=== PATIENT | male | born 1960 | race Two or more races ===

== ENCOUNTER 2021-09-27 12:14 | Inpatient (IN) | payer MEDICAID, OTHER ==
[~2021-09-27] VITALS: Ht 157.5 cm; Wt 54.1 kg
[2021-09-27] MEDS ORDERED: ACETAMINOPHEN 500 MG TAB PO ONE (12:30)
[2021-09-27] MEDS ORDERED: ZINC SULFATE 220mg CAP or TAB PO ONE (13:00)
[2021-09-27] MEDS ORDERED: ASCORBIC ACID 500 MG TAB PO ONE (13:00)
[2021-09-27] MEDS ORDERED: AZITHROMYCIN 500MG/ 250ML 250 ML IV ONE (13:00)
[2021-09-27] MEDS ORDERED: methylPREDNISolone SOD SUCC 125 MG/2 ML VL IV ONE (13:00)
[2021-09-27] MEDS ORDERED: CHOLECALCIFEROL (VITD3) 2,000 UNIT CAP/TAB PO ONE (13:00)
[2021-09-27 13:20] LABS: Basophils # (auto) 0 10 ^3/uL (0-0.2); Basophils % (auto) 0.4 % (0.0-2.0); Eosinophils # (auto) 0 10 ^3/uL (0-0.8); Hematocrit 45.6 % (41.0-53.0); Hemoglobin 15.7 g/dL (13.5-17.5); Lymphocytes # (auto) 1.3 10 ^3/uL (0.4-5.4); Mean Corpuscular Hemoglobin 30.3 pg (28.0-32.0); Mean Corpuscular Hgb Conc. 34.5 g/dL (32.0-36.0); Mean Corpuscular Volume 87.9 fL (80.0-100.0); Monocytes # (auto) 0.4 10 ^3/uL (0-1.3); Neutrophils % (auto) 77.6 % (37.0-80.0); Nucleated Red Blood Cells % 0.2 %; Red Blood Cells 5.19 10^6/uL (4.5-5.90); Red Cell Distribution Width 13.6 % (11.8-14.3); White Blood Cell 7.7 10^3/uL (4.4-10.8)
[2021-09-27 13:30] LABS: Albumin 2.8 g/dL (3.4-5.0); BUN/Creatinine Ratio 8.9; Calcium 7.5 mg/dL (8.5-10.1); Magnesium 2.9 mg/dL (1.6-2.6); Potassium 3.8 mmol/L (3.5-5.1)
[2021-09-27 13:43] LABS: Bilirubin, Total 1.1 mg/dL (0.2-1.0); Total Protein 8.1 g/dL (6.4-8.2)
[2021-09-27] MEDS ORDERED: NITROGLYCERIN 0.4 MG SL TAB SL PRN ×2 (16:00→17:00)
[2021-09-27] MEDS ORDERED: MORPHINE SULFATE INJECTION 2 MG/ML SYRG IV PRN ×3 (16:00→17:00)
[2021-09-27] MEDS ORDERED: ASPI325T4 PO (16:11)
[2021-09-27 17:00] VITALS: BP 113/79
[2021-09-27] MEDS ORDERED: HYDROcodone-ACET 5/325MG TAB PO PRN (17:00)
[2021-09-27] MEDS ORDERED: ONDANSETRON HCL 4 MG/2 ML VIAL IV PRN (17:00)
[2021-09-27] MEDS ORDERED: REMDESIVIR PER PHARMACY 0 ML IV SCH (17:00)
[2021-09-27] MEDS ORDERED: DOCUSATE SOD 100 MG CAP PO PRN (17:00)
[2021-09-27] MEDS ORDERED: ALUM & MAG HYDROX-SIMETH LIQ(MAALOX) 30 ML PO PRN (17:00)
[2021-09-27] MEDS ORDERED: FUROSEMIDE 20 MG/2 ML VIAL IV ONE (17:00)
[2021-09-27] MEDS ORDERED: ALBUMIN 25% 50 ML IV ONE (17:15)
[2021-09-27] MEDS: IVERMECTIN 3 MG TAB PO SCH (17:24)
[2021-09-27] MEDS ORDERED: REMDESIVIR 200 MG in NS 210ml LOADING DOSE ADULT IV ONE (18:30)
[2021-09-27 21:55] VITALS: BP 116/64
[2021-09-27 21:57] LABS: Calcium 7.4 mg/dL (8.5-10.1); Cholesterol 109 mg/dL (< 200); Magnesium 2.7 mg/dL (1.6-2.6); Potassium 3.7 mmol/L (3.5-5.1)
[2021-09-27 22:00] LABS: HDL Cholesterol 30 mg/dL (40-59); LDL Cholesterol 66 mg/dL (< 100); Triglycerides 93 mg/dL (< 150)
[2021-09-27 22:05] LABS: BUN/Creatinine Ratio 10.7; Bilirubin, Total 1.2 mg/dL (0.2-1.0); CRP High Sensitivity 13.3 mg/dL (< 0.3)
[2021-09-27] MEDS: ENOXAPARIN SOD 40 MG/0.4 ML SYRINGE SC SCH (22:07)
[2021-09-27] MEDS: POTASSIUM CHL 20 Meq TABLET PO SCH (22:07)
[2021-09-27] MEDS: ATORVASTATIN 20 MG TAB PO SCH (22:07)
[2021-09-27] MEDS: DOXYCYCLINE 100MG/250ML 250 ML IV SCH (22:07)
[2021-09-27 22:14] LABS: Thyroid Stimulating Hormone 0.9 uIU/mL (0.358-3.74)
[2021-09-28 00:59] VITALS: BP 116/64
[2021-09-28 02:46] LABS: Urine Bacteria NONE SEEN /hpf (None Seen); Urine Blood Negative /uL (Negative); Urine Hyaline Cast FEW /lpf (0 - 2); Urine Mucus FEW (None Seen); Urine Specific Gravity 1.028 (1.001-1.035); Urine WBC 1 /hpf (0 - 3)
[2021-09-28 02:58] LABS: Amphetamine Screen, Urine NEGATIVE (NEGATIVE); Barbiturate Scree,Urine NEGATIVE (NEGATIVE); Benzodiazephine Screen, Urine NEGATIVE (NEGATIVE); Cannabinoid Screen, Urine NEGATIVE (NEGATIVE); Cocaine Screen, Urine NEGATIVE (NEGATIVE); Opiate Scree,Urine POSITIVE (NEGATIVE); Phencyclidine Screen, Urine NEGATIVE (NEGATIVE)
[2021-09-28 04:55] VITALS: BP 120/69
[2021-09-28] MEDS: BUDESONIDE (INHALATION) 180 MCG IH IN SCH ×2 (06:00→20:31)
[2021-09-28] MEDS: FUROSEMIDE 20 MG/2 ML VIAL IV SCH ×2 (06:00→18:41)
[2021-09-28] MEDS: ALBUTEROL SULF HFA 90MCG INH 200DOSE IN PRN ×2 (06:00→20:31)
[2021-09-28 07:06] LABS: Basophils # (auto) 0 10 ^3/uL (0-0.2); Basophils % (auto) 0.3 % (0.0-2.0); Eosinophils # (auto) 0 10 ^3/uL (0-0.8); Eosinophils % (auto) 0.1 % (0.0-7.0); Hematocrit 45.6 % (41.0-53.0); Hemoglobin 15.5 g/dL (13.5-17.5); Lymphocytes # (auto) 0.9 10 ^3/uL (0.4-5.4); Lymphocytes % (auto) 14.3 % (10.0-50.0); Mean Corpuscular Volume 88.2 fL (80.0-100.0); Monocytes # (auto) 0.3 10 ^3/uL (0-1.3); Monocytes % (auto) 4.4 % (0.0-12.0); Neutrophils # (auto) 5.4 10 ^3/uL (1.6-8.6); Neutrophils % (auto) 80.9 % (37.0-80.0); Nucleated Red Blood Cells % 0.2 %; Red Blood Cells 5.16 10^6/uL (4.5-5.90); Red Cell Distribution Width 13.5 % (11.8-14.3); White Blood Cell 6.6 10^3/uL (4.4-10.8)
[2021-09-28 07:22] LABS: Albumin 2.9 g/dL (3.4-5.0); Calcium 7.8 mg/dL (8.5-10.1); Magnesium 3.1 mg/dL (1.6-2.6); Potassium 3.5 mmol/L (3.5-5.1); Uric Acid 5.4 mg/dL (3.5-7.2)
[2021-09-28 07:23] LABS: INR 0.99 (0.9-1.15); Partial Thromboplastin Time 36.2 sec (23.6-33.0)
[2021-09-28 07:28] LABS: BUN/Creatinine Ratio 14.6; Bilirubin, Total 0.9 mg/dL (0.2-1.0); Phosphorus 3.2 mg/dL (2.5-4.90); Total Protein 8.1 g/dL (6.4-8.2)
[2021-09-28] MEDS: DexAMETHasone SOD PHOS 10MG/1ML VIAL INJ IV SCH (08:46)
[2021-09-28] MEDS: DOXYCYCLINE 100MG/250ML 250 ML IV SCH ×2 (08:47→22:00)
[2021-09-28] MEDS: ASCORBIC ACID 1,000 MG TAB PO SCH (08:49)
[2021-09-28] MEDS: CHOLECALCIFEROL (VITD3) 2,000 UNIT CAP/TAB PO SCH (08:49)
[2021-09-28] MEDS: ZINC SULFATE 220mg CAP or TAB PO SCH (08:49)
[2021-09-28] MEDS: ASPirin 81 mg TAB PO SCH (08:49)
[2021-09-28] MEDS: ENOXAPARIN SOD 40 MG/0.4 ML SYRINGE SC SCH ×2 (08:49→22:00)
[2021-09-28] MEDS: POTASSIUM CHL 20 Meq TABLET PO SCH ×2 (08:49→22:00)
[2021-09-28] MEDS: IVERMECTIN 3 MG TAB PO SCH (08:49)
[2021-09-28 08:55] VITALS: BP 118/65
[2021-09-28 13:00] VITALS: BP 116/64
[2021-09-28] MEDS: REMDESIVIR 100mg 100 MG in SODIUM CHL 0.9% 230 ML IV SCH (15:00)
[2021-09-28 16:55] VITALS: BP 110/66
[2021-09-28 22:00] VITALS: BP 116/67
[2021-09-28] MEDS: ATORVASTATIN 20 MG TAB PO SCH (22:00)
[2021-09-29 05:00] VITALS: BP 101/43
[2021-09-29] MEDS: ALBUTEROL SULF HFA 90MCG INH 200DOSE IN PRN ×2 (05:56→18:39)
[2021-09-29] MEDS: BUDESONIDE (INHALATION) 180 MCG IH IN SCH ×2 (05:56→18:40)
[2021-09-29] MEDS: FUROSEMIDE 20 MG/2 ML VIAL IV SCH ×2 (06:00→18:37)
[2021-09-29 07:16] LABS: Basophils # (auto) 0 10 ^3/uL (0-0.2); Eosinophils # (auto) 0 10 ^3/uL (0-0.8); Hemoglobin 15.1 g/dL (13.5-17.5); Lymphocytes # (auto) 1.2 10 ^3/uL (0.4-5.4); Mean Corpuscular Hemoglobin 29.9 pg (28.0-32.0); Mean Corpuscular Hgb Conc. 33.6 g/dL (32.0-36.0); Mean Corpuscular Volume 88.9 fL (80.0-100.0); Monocytes # (auto) 0.6 10 ^3/uL (0-1.3); Monocytes % (auto) 4.4 % (0.0-12.0); Neutrophils # (auto) 12.7 10 ^3/uL (1.6-8.6); Neutrophils % (auto) 87.6 % (37.0-80.0); Nucleated Red Blood Cells % 0.3 %; Red Blood Cells 5.06 10^6/uL (4.5-5.90); Red Cell Distribution Width 13.6 % (11.8-14.3); White Blood Cell 14.5 10^3/uL (4.4-10.8)
[2021-09-29 07:30] LABS: Potassium 4.6 mmol/L (3.5-5.1)
[2021-09-29 07:31] LABS: BUN/Creatinine Ratio 23.5
[2021-09-29 08:55] VITALS: BP 109/66
[2021-09-29] MEDS: DexAMETHasone SOD PHOS 10MG/1ML VIAL INJ IV SCH (09:48)
[2021-09-29] MEDS: POTASSIUM CHL 20 Meq TABLET PO SCH ×2 (09:49→21:56)
[2021-09-29] MEDS: DOXYCYCLINE 100MG/250ML 250 ML IV SCH ×2 (09:49→21:58)
[2021-09-29] MEDS: IVERMECTIN 3 MG TAB PO SCH (09:49)
[2021-09-29] MEDS: ASPirin 81 mg TAB PO SCH (09:49)
[2021-09-29] MEDS: ZINC SULFATE 220mg CAP or TAB PO SCH (09:49)
[2021-09-29] MEDS: ASCORBIC ACID 1,000 MG TAB PO SCH (09:50)
[2021-09-29] MEDS: CHOLECALCIFEROL (VITD3) 2,000 UNIT CAP/TAB PO SCH (09:50)
[2021-09-29] MEDS: ENOXAPARIN SOD 40 MG/0.4 ML SYRINGE SC SCH ×2 (09:50→21:56)
[2021-09-29] MEDS ORDERED: IOHEXOL 350 MG/ML 100ML IJ ONE (11:42)
[2021-09-29 12:37] VITALS: BP 120/70
[2021-09-29] MEDS: REMDESIVIR 100mg 100 MG in SODIUM CHL 0.9% 230 ML IV SCH (16:00)
[2021-09-29 16:52] VITALS: BP 116/73
[2021-09-29] MEDS: ATORVASTATIN 20 MG TAB PO SCH (21:56)
[2021-09-29 22:12] VITALS: BP 113/59
[2021-09-30 05:34] VITALS: BP 106/94
[2021-09-30] MEDS: FUROSEMIDE 20 MG/2 ML VIAL IV SCH ×2 (06:24→19:21)
[2021-09-30 06:57] LABS: Basophils # (auto) 0 10 ^3/uL (0-0.2); Eosinophils # (auto) 0 10 ^3/uL (0-0.8); Hematocrit 44.7 % (41.0-53.0); Hemoglobin 15.1 g/dL (13.5-17.5); Lymphocytes # (auto) 1.1 10 ^3/uL (0.4-5.4); Lymphocytes % (auto) 7.4 % (10.0-50.0); Mean Corpuscular Hemoglobin 30.4 pg (28.0-32.0); Mean Corpuscular Hgb Conc. 33.8 g/dL (32.0-36.0); Mean Corpuscular Volume 89.9 fL (80.0-100.0); Monocytes # (auto) 0.6 10 ^3/uL (0-1.3); Monocytes % (auto) 4.3 % (0.0-12.0); Neutrophils # (auto) 13.1 10 ^3/uL (1.6-8.6); Neutrophils % (auto) 88.3 % (37.0-80.0); Nucleated Red Blood Cells % 0.1 %; Red Blood Cells 4.97 10^6/uL (4.5-5.90); Red Cell Distribution Width 13.5 % (11.8-14.3); White Blood Cell 14.8 10^3/uL (4.4-10.8)
[2021-09-30 07:10] LABS: Potassium 4.7 mmol/L (3.5-5.1)
[2021-09-30 07:14] LABS: Albumin 2.6 g/dL (3.4-5.0); BUN/Creatinine Ratio 22.6
[2021-09-30 07:17] LABS: Bilirubin, Total 1.1 mg/dL (0.2-1.0)
[2021-09-30] MEDS: ALBUTEROL SULF HFA 90MCG INH 200DOSE IN PRN (07:47)
[2021-09-30] MEDS: BUDESONIDE (INHALATION) 180 MCG IH IN SCH ×2 (07:47→20:59)
[2021-09-30 08:39] VITALS: BP 119/62
[2021-09-30] MEDS: DexAMETHasone SOD PHOS 10MG/1ML VIAL INJ IV SCH (10:03)
[2021-09-30] MEDS: ZINC SULFATE 220mg CAP or TAB PO SCH (10:09)
[2021-09-30] MEDS: DOXYCYCLINE 100MG/250ML 250 ML IV SCH ×2 (10:09→22:28)
[2021-09-30] MEDS: ASPirin 81 mg TAB PO SCH (10:09)
[2021-09-30] MEDS: ASCORBIC ACID 1,000 MG TAB PO SCH (10:10)
[2021-09-30] MEDS: POTASSIUM CHL 20 Meq TABLET PO SCH ×2 (10:10→22:30)
[2021-09-30] MEDS: IVERMECTIN 3 MG TAB PO SCH (10:10)
[2021-09-30] MEDS: CHOLECALCIFEROL (VITD3) 2,000 UNIT CAP/TAB PO SCH (10:10)
[2021-09-30] MEDS: ENOXAPARIN SOD 40 MG/0.4 ML SYRINGE SC SCH ×2 (10:11→22:30)
[2021-09-30 13:01] VITALS: BP 114/66
[2021-09-30] MEDS: REMDESIVIR 100mg 100 MG in SODIUM CHL 0.9% 230 ML IV SCH (16:58)
[2021-09-30 16:59] VITALS: BP 118/61
[2021-09-30 22:00] VITALS: BP 117/76
[2021-09-30] MEDS: ATORVASTATIN 20 MG TAB PO SCH (22:30)
[2021-10-01 03:34] VITALS: BP 117/76
[2021-10-01 05:00] VITALS: BP 121/73
[2021-10-01] MEDS: FUROSEMIDE 20 MG/2 ML VIAL IV SCH ×2 (05:27→18:05)
[2021-10-01 07:22] LABS: Basophils # (auto) 0 10 ^3/uL (0-0.2); Basophils % (auto) 0.1 % (0.0-2.0); Eosinophils # (auto) 0 10 ^3/uL (0-0.8); Hematocrit 44.4 % (41.0-53.0); Hemoglobin 15.2 g/dL (13.5-17.5); Lymphocytes # (auto) 1.3 10 ^3/uL (0.4-5.4); Lymphocytes % (auto) 8.4 % (10.0-50.0); Mean Corpuscular Hemoglobin 30.4 pg (28.0-32.0); Mean Corpuscular Hgb Conc. 34.3 g/dL (32.0-36.0); Mean Corpuscular Volume 88.6 fL (80.0-100.0); Monocytes # (auto) 0.6 10 ^3/uL (0-1.3); Monocytes % (auto) 3.8 % (0.0-12.0); Neutrophils # (auto) 13.1 10 ^3/uL (1.6-8.6); Neutrophils % (auto) 87.7 % (37.0-80.0); Nucleated Red Blood Cells % 0.1 %; Red Blood Cells 5.01 10^6/uL (4.5-5.90); Red Cell Distribution Width 13.7 % (11.8-14.3)
[2021-10-01 07:30] LABS: Albumin 2.6 g/dL (3.4-5.0); Calcium 7.9 mg/dL (8.5-10.1)
[2021-10-01 07:35] LABS: BUN/Creatinine Ratio 25.6; Bilirubin, Total 1.7 mg/dL (0.2-1.0); Total Protein 7.1 g/dL (6.4-8.2)
[2021-10-01] MEDS: DexAMETHasone SOD PHOS 10MG/1ML VIAL INJ IV SCH (08:29)
[2021-10-01] MEDS: DOXYCYCLINE 100MG/250ML 250 ML IV SCH ×2 (08:30→21:43)
[2021-10-01] MEDS: ASPirin 81 mg TAB PO SCH (08:30)
[2021-10-01] MEDS: ZINC SULFATE 220mg CAP or TAB PO SCH (08:30)
[2021-10-01] MEDS: CHOLECALCIFEROL (VITD3) 2,000 UNIT CAP/TAB PO SCH (08:31)
[2021-10-01] MEDS: POTASSIUM CHL 20 Meq TABLET PO SCH ×2 (08:31→21:44)
[2021-10-01] MEDS: ENOXAPARIN SOD 40 MG/0.4 ML SYRINGE SC SCH ×2 (08:31→21:44)
[2021-10-01] MEDS: ASCORBIC ACID 1,000 MG TAB PO SCH (08:31)
[2021-10-01] MEDS: IVERMECTIN 3 MG TAB PO SCH (08:31)
[2021-10-01 09:00] VITALS: BP 123/69
[2021-10-01] MEDS: ALBUTEROL SULF HFA 90MCG INH 200DOSE IN PRN ×2 (11:01→22:43)
[2021-10-01] MEDS: BUDESONIDE (INHALATION) 180 MCG IH IN SCH ×2 (11:01→22:43)
[2021-10-01 13:00] VITALS: BP 102/65
[2021-10-01] MEDS: REMDESIVIR 100mg 100 MG in SODIUM CHL 0.9% 230 ML IV SCH (13:27)
[2021-10-01 17:00] VITALS: BP 120/76
[2021-10-01] MEDS: ATORVASTATIN 20 MG TAB PO SCH (21:44)
[2021-10-01 22:00] VITALS: BP 114/69
[2021-10-02 05:00] VITALS: BP 125/71
[2021-10-02] MEDS: FUROSEMIDE 20 MG/2 ML VIAL IV SCH ×2 (05:45→17:31)
[2021-10-02 05:51] LABS: Basophils # (auto) 0.1 10 ^3/uL (0-0.2); Basophils % (auto) 0.6 % (0.0-2.0); Eosinophils # (auto) 0 10 ^3/uL (0-0.8); Eosinophils % (auto) 0.1 % (0.0-7.0); Hematocrit 43.8 % (41.0-53.0); Lymphocytes % (auto) 6.5 % (10.0-50.0); Mean Corpuscular Hemoglobin 30.4 pg (28.0-32.0); Mean Corpuscular Hgb Conc. 34.2 g/dL (32.0-36.0); Mean Corpuscular Volume 88.9 fL (80.0-100.0); Monocytes # (auto) 0.7 10 ^3/uL (0-1.3); Monocytes % (auto) 4.7 % (0.0-12.0); Neutrophils % (auto) 88.1 % (37.0-80.0); Nucleated Red Blood Cells % 0.1 %; Red Blood Cells 4.93 10^6/uL (4.5-5.90); Red Cell Distribution Width 13.6 % (11.8-14.3); White Blood Cell 14.7 10^3/uL (4.4-10.8)
[2021-10-02 06:36] LABS: Potassium 4.7 mmol/L (3.5-5.1)
[2021-10-02 06:38] LABS: BUN/Creatinine Ratio 30.9
[2021-10-02] MEDS: BUDESONIDE (INHALATION) 180 MCG IH IN SCH ×2 (07:17→23:32)
[2021-10-02] MEDS: ALBUTEROL SULF HFA 90MCG INH 200DOSE IN PRN (07:17)
[2021-10-02 09:00] VITALS: BP 114/70
[2021-10-02] MEDS: ZINC SULFATE 220mg CAP or TAB PO SCH (10:00)
[2021-10-02] MEDS: IVERMECTIN 3 MG TAB PO SCH (10:45)
[2021-10-02] MEDS: DOXYCYCLINE 100MG/250ML 250 ML IV SCH (10:45)
[2021-10-02] MEDS: DexAMETHasone SOD PHOS 10MG/1ML VIAL INJ IV SCH (10:45)
[2021-10-02] MEDS: ENOXAPARIN SOD 40 MG/0.4 ML SYRINGE SC SCH ×2 (10:45→21:04)
[2021-10-02] MEDS: CHOLECALCIFEROL (VITD3) 2,000 UNIT CAP/TAB PO SCH (10:46)
[2021-10-02] MEDS: LORazepam 0.5 MG TAB PO PRN ×2 (10:46→21:03)
[2021-10-02] MEDS: POTASSIUM CHL 20 Meq TABLET PO SCH ×2 (10:46→21:04)
[2021-10-02] MEDS: ASCORBIC ACID 1,000 MG TAB PO SCH (10:46)
[2021-10-02] MEDS: ASPirin 81 mg TAB PO SCH (10:46)
[2021-10-02 13:00] VITALS: BP 115/72
[2021-10-02 17:00] VITALS: BP 118/71
[2021-10-02] MEDS: ATORVASTATIN 20 MG TAB PO SCH (21:03)
[2021-10-02 22:00] VITALS: BP 116/73
[2021-10-03] VITALS (7 sets, daily range): BP systolic 112–124; BP diastolic 59–69
[2021-10-03] MEDS: FUROSEMIDE 20 MG/2 ML VIAL IV SCH ×2 (05:41→18:30)
[2021-10-03 06:29] LABS: Basophils # (auto) 0 10 ^3/uL (0-0.2); Eosinophils # (auto) 0.1 10 ^3/uL (0-0.8); Lymphocytes # (auto) 1.1 10 ^3/uL (0.4-5.4); Neutrophils # (auto) 12.8 10 ^3/uL (1.6-8.6)
[2021-10-03 06:33] LABS: Basophils % (auto) 0.1 % (0.0-2.0); Eosinophils % (auto) 0.4 % (0.0-7.0); Hematocrit 43.7 % (41.0-53.0); Hemoglobin 15.1 g/dL (13.5-17.5); Lymphocytes % (auto) 7.4 % (10.0-50.0); Mean Corpuscular Hemoglobin 30.6 pg (28.0-32.0); Mean Corpuscular Hgb Conc. 34.6 g/dL (32.0-36.0); Mean Corpuscular Volume 88.5 fL (80.0-100.0); Monocytes # (auto) 0.7 10 ^3/uL (0-1.3); Monocytes % (auto) 4.6 % (0.0-12.0); Neutrophils % (auto) 87.5 % (37.0-80.0); Red Blood Cells 4.94 10^6/uL (4.5-5.90); Red Cell Distribution Width 13.5 % (11.8-14.3); White Blood Cell 14.6 10^3/uL (4.4-10.8)
[2021-10-03 06:46] LABS: BUN/Creatinine Ratio 34.2; Calcium 8.2 mg/dL (8.5-10.1); Potassium 4.8 mmol/L (3.5-5.1)
[2021-10-03] MEDS: ZINC SULFATE 220mg CAP or TAB PO SCH (10:02)
[2021-10-03] MEDS: DexAMETHasone SOD PHOS 10MG/1ML VIAL INJ IV SCH (10:02)
[2021-10-03] MEDS: ASPirin 81 mg TAB PO SCH (10:02)
[2021-10-03] MEDS: POTASSIUM CHL 20 Meq TABLET PO SCH ×2 (10:02→21:39)
[2021-10-03] MEDS: IVERMECTIN 3 MG TAB PO SCH (10:03)
[2021-10-03] MEDS: ENOXAPARIN SOD 40 MG/0.4 ML SYRINGE SC SCH ×2 (10:04→21:39)
[2021-10-03] MEDS: ASCORBIC ACID 1,000 MG TAB PO SCH (10:04)
[2021-10-03] MEDS: CHOLECALCIFEROL (VITD3) 2,000 UNIT CAP/TAB PO SCH (10:04)
[2021-10-03] MEDS: ALBUTEROL SULF HFA 90MCG INH 200DOSE IN PRN ×2 (15:26→23:31)
[2021-10-03] MEDS: BUDESONIDE (INHALATION) 180 MCG IH IN SCH ×2 (15:26→22:23)
[2021-10-03] MEDS: ATORVASTATIN 20 MG TAB PO SCH (21:39)
[2021-10-04] VITALS (8 sets, daily range): BP systolic 107–125; BP diastolic 63–70
[2021-10-04] MEDS: ALBUTEROL SULF HFA 90MCG INH 200DOSE IN PRN ×3 (04:02→21:00)
[2021-10-04] MEDS: FUROSEMIDE 20 MG/2 ML VIAL IV SCH ×2 (05:45→16:49)
[2021-10-04] MEDS: BUDESONIDE (INHALATION) 180 MCG IH IN SCH ×2 (08:35→21:00)
[2021-10-04] MEDS: ENOXAPARIN SOD 40 MG/0.4 ML SYRINGE SC SCH ×2 (09:54→22:08)
[2021-10-04] MEDS: DexAMETHasone SOD PHOS 10MG/1ML VIAL INJ IV SCH (09:54)
[2021-10-04] MEDS: CHOLECALCIFEROL (VITD3) 2,000 UNIT CAP/TAB PO SCH (10:00)
[2021-10-04] MEDS: ZINC SULFATE 220mg CAP or TAB PO SCH (10:00)
[2021-10-04] MEDS: ASPirin 81 mg TAB PO SCH (10:00)
[2021-10-04] MEDS: ASCORBIC ACID 1,000 MG TAB PO SCH (10:00)
[2021-10-04] MEDS: POTASSIUM CHL 20 Meq TABLET PO SCH ×2 (10:00→22:07)
[2021-10-04] MEDS: ATORVASTATIN 20 MG TAB PO SCH (22:08)
[2021-10-05] VITALS (9 sets, daily range): BP systolic 105–118; BP diastolic 63–70
[2021-10-05] MEDS: FUROSEMIDE 20 MG/2 ML VIAL IV SCH ×2 (06:01→18:04)
[2021-10-05] MEDS: ALBUTEROL SULF HFA 90MCG INH 200DOSE IN PRN (09:05)
[2021-10-05] MEDS: BUDESONIDE (INHALATION) 180 MCG IH IN SCH ×2 (09:05→22:30)
[2021-10-05] MEDS: ZINC SULFATE 220mg CAP or TAB PO SCH (10:00)
[2021-10-05] MEDS: ASCORBIC ACID 1,000 MG TAB PO SCH (10:00)
[2021-10-05] MEDS: ASPirin 81 mg TAB PO SCH (10:00)
[2021-10-05] MEDS: CHOLECALCIFEROL (VITD3) 2,000 UNIT CAP/TAB PO SCH (10:00)
[2021-10-05] MEDS: POTASSIUM CHL 20 Meq TABLET PO SCH ×2 (10:00→22:00)
[2021-10-05] MEDS: DexAMETHasone SOD PHOS 10MG/1ML VIAL INJ IV SCH (10:24)
[2021-10-05] MEDS: ENOXAPARIN SOD 40 MG/0.4 ML SYRINGE SC SCH ×2 (10:26→22:23)
[2021-10-05] MEDS: ATORVASTATIN 20 MG TAB PO SCH (22:00)
[2021-10-06 02:00] VITALS: BP 130/70
[2021-10-06] MEDS: ALBUTEROL SULF HFA 90MCG INH 200DOSE IN PRN (03:25)
[2021-10-06 04:43] VITALS: BP 113/72
[2021-10-06 06:26] LABS: Basophils # (auto) 0 10 ^3/uL (0-0.2); Basophils % (auto) 0.2 % (0.0-2.0); Eosinophils # (auto) 0 10 ^3/uL (0-0.8); Eosinophils % (auto) 0.1 % (0.0-7.0); Hemoglobin 16.1 g/dL (13.5-17.5); Mean Corpuscular Hemoglobin 29.8 pg (28.0-32.0)
[2021-10-06 06:31] LABS: Hematocrit 47.4 % (41.0-53.0); Lymphocytes # (auto) 1.1 10 ^3/uL (0.4-5.4); Mean Corpuscular Volume 87.6 fL (80.0-100.0); Monocytes # (auto) 0.4 10 ^3/uL (0-1.3); Monocytes % (auto) 2.4 % (0.0-12.0); Neutrophils # (auto) 13.6 10 ^3/uL (1.6-8.6); Neutrophils % (auto) 90.3 % (37.0-80.0); Red Blood Cells 5.41 10^6/uL (4.5-5.90); Red Cell Distribution Width 13.2 % (11.8-14.3); White Blood Cell 15.1 10^3/uL (4.4-10.8)
[2021-10-06] MEDS: FUROSEMIDE 20 MG/2 ML VIAL IV SCH ×2 (06:43→17:20)
[2021-10-06 06:58] LABS: Potassium 4.5 mmol/L (3.5-5.1)
[2021-10-06 07:05] LABS: BUN/Creatinine Ratio 38.1; Calcium 8.3 mg/dL (8.5-10.1)
[2021-10-06 08:33] VITALS: BP 95/68
[2021-10-06] MEDS: ASPirin 81 mg TAB PO SCH (08:36)
[2021-10-06] MEDS: DexAMETHasone SOD PHOS 10MG/1ML VIAL INJ IV SCH (08:36)
[2021-10-06] MEDS: POTASSIUM CHL 20 Meq TABLET PO SCH ×2 (08:37→22:01)
[2021-10-06] MEDS: ZINC SULFATE 220mg CAP or TAB PO SCH (08:38)
[2021-10-06] MEDS: ENOXAPARIN SOD 40 MG/0.4 ML SYRINGE SC SCH ×2 (08:38→22:01)
[2021-10-06] MEDS: CHOLECALCIFEROL (VITD3) 2,000 UNIT CAP/TAB PO SCH (08:39)
[2021-10-06] MEDS: ASCORBIC ACID 1,000 MG TAB PO SCH (08:39)
[2021-10-06] MEDS: BUDESONIDE (INHALATION) 180 MCG IH IN SCH ×2 (10:00→19:26)
[2021-10-06 12:57] VITALS: BP 114/70
[2021-10-06 16:59] VITALS: BP 114/70
[2021-10-06 22:00] VITALS: BP 116/69
[2021-10-06] MEDS: ATORVASTATIN 20 MG TAB PO SCH (22:01)
[2021-10-07] MEDS: ALBUTEROL SULF HFA 90MCG INH 200DOSE IN PRN ×3 (00:24→19:20)
[2021-10-07 04:16] VITALS: BP 116/69
[2021-10-07 05:00] VITALS: BP 111/73
[2021-10-07] MEDS: FUROSEMIDE 20 MG/2 ML VIAL IV SCH ×2 (05:36→18:01)
[2021-10-07 09:00] VITALS: BP 127/71
[2021-10-07 09:02] LABS: Basophils # (auto) 0.1 10 ^3/uL (0-0.2); Basophils % (auto) 0.5 % (0.0-2.0); Eosinophils # (auto) 0 10 ^3/uL (0-0.8); Eosinophils % (auto) 0.2 % (0.0-7.0); Hematocrit 47.3 % (41.0-53.0); Hemoglobin 16.2 g/dL (13.5-17.5); Lymphocytes # (auto) 0.9 10 ^3/uL (0.4-5.4); Lymphocytes % (auto) 5.2 % (10.0-50.0); Mean Corpuscular Hemoglobin 29.8 pg (28.0-32.0); Mean Corpuscular Hgb Conc. 34.2 g/dL (32.0-36.0); Mean Corpuscular Volume 87.1 fL (80.0-100.0); Monocytes # (auto) 0.4 10 ^3/uL (0-1.3); Monocytes % (auto) 2.4 % (0.0-12.0); Neutrophils # (auto) 15.9 10 ^3/uL (1.6-8.6); Neutrophils % (auto) 91.7 % (37.0-80.0); Nucleated Red Blood Cells % 0.1 %; Red Blood Cells 5.43 10^6/uL (4.5-5.90); Red Cell Distribution Width 12.9 % (11.8-14.3); White Blood Cell 17.4 10^3/uL (4.4-10.8)
[2021-10-07 09:22] LABS: Albumin 2.1 g/dL (3.4-5.0); BUN/Creatinine Ratio 43.6; Calcium 8.2 mg/dL (8.5-10.1); Potassium 4.4 mmol/L (3.5-5.1)
[2021-10-07 09:30] LABS: Bilirubin, Total 1.4 mg/dL (0.2-1.0); Total Protein 7.1 g/dL (6.4-8.2)
[2021-10-07] MEDS: ZINC SULFATE 220mg CAP or TAB PO SCH (09:53)
[2021-10-07] MEDS: DexAMETHasone SOD PHOS 10MG/1ML VIAL INJ IV SCH (09:53)
[2021-10-07] MEDS: ASPirin 81 mg TAB PO SCH (09:53)
[2021-10-07] MEDS: ASCORBIC ACID 1,000 MG TAB PO SCH (09:54)
[2021-10-07] MEDS: ENOXAPARIN SOD 40 MG/0.4 ML SYRINGE SC SCH ×2 (09:54→22:19)
[2021-10-07] MEDS: CHOLECALCIFEROL (VITD3) 2,000 UNIT CAP/TAB PO SCH (09:54)
[2021-10-07] MEDS: POTASSIUM CHL 20 Meq TABLET PO SCH ×3 (09:54→23:06)
[2021-10-07] MEDS: BUDESONIDE (INHALATION) 180 MCG IH IN SCH ×2 (10:34→19:20)
[2021-10-07 13:04] VITALS: BP 114/56
[2021-10-07 17:00] VITALS: BP 111/77
[2021-10-07] MEDS: ATORVASTATIN 20 MG TAB PO SCH ×2 (22:00→23:07)
[2021-10-07 22:04] VITALS: BP 116/74
[2021-10-08] VITALS (10 sets, daily range): BP systolic 104–117; BP diastolic 66–73
[2021-10-08] MEDS: FUROSEMIDE 20 MG/2 ML VIAL IV SCH ×2 (06:19→17:29)
[2021-10-08] MEDS: BUDESONIDE (INHALATION) 180 MCG IH IN SCH ×2 (06:58→18:58)
[2021-10-08] MEDS: ALBUTEROL SULF HFA 90MCG INH 200DOSE IN PRN ×2 (07:00→18:58)
[2021-10-08 07:13] LABS: Eosinophils # (auto) 0 10 ^3/uL (0-0.8); Eosinophils % (auto) 0.2 % (0.0-7.0); Hemoglobin 16.2 g/dL (13.5-17.5); Monocytes # (auto) 0.7 10 ^3/uL (0-1.3); Neutrophils # (auto) 17.4 10 ^3/uL (1.6-8.6); White Blood Cell 19.5 10^3/uL (4.4-10.8)
[2021-10-08 07:14] LABS: Basophils # (auto) 0.1 10 ^3/uL (0-0.2); Basophils % (auto) 0.4 % (0.0-2.0); Hematocrit 46.9 % (41.0-53.0); Lymphocytes # (auto) 1.4 10 ^3/uL (0.4-5.4); Mean Corpuscular Hemoglobin 29.9 pg (28.0-32.0); Mean Corpuscular Hgb Conc. 34.6 g/dL (32.0-36.0); Mean Corpuscular Volume 86.2 fL (80.0-100.0); Monocytes % (auto) 3.4 % (0.0-12.0); Nucleated Red Blood Cells % 0.1 %; Red Blood Cells 5.44 10^6/uL (4.5-5.90); Red Cell Distribution Width 13.5 % (11.8-14.3)
[2021-10-08 07:30] LABS: BUN/Creatinine Ratio 38.1; Calcium 8.4 mg/dL (8.5-10.1); Potassium 4.1 mmol/L (3.5-5.1)
[2021-10-08] MEDS: DexAMETHasone SOD PHOS 10MG/1ML VIAL INJ IV SCH (09:46)
[2021-10-08] MEDS: ENOXAPARIN SOD 40 MG/0.4 ML SYRINGE SC SCH ×2 (09:46→22:12)
[2021-10-08] MEDS: POTASSIUM CHL 20 Meq TABLET PO SCH ×2 (10:00→22:11)
[2021-10-08] MEDS: ASCORBIC ACID 1,000 MG TAB PO SCH (10:00)
[2021-10-08] MEDS: ASPirin 81 mg TAB PO SCH (10:00)
[2021-10-08] MEDS: CHOLECALCIFEROL (VITD3) 2,000 UNIT CAP/TAB PO SCH (10:00)
[2021-10-08] MEDS: ZINC SULFATE 220mg CAP or TAB PO SCH (10:00)
[2021-10-08] MEDS: Ensure HIGH Protein Vanilla 8oz Bottle PO SCH ×3 (12:00→22:12)
[2021-10-08] MEDS: ATORVASTATIN 20 MG TAB PO SCH (22:12)
[2021-10-09] VITALS (10 sets, daily range): BP systolic 104–115; BP diastolic 65–74
[2021-10-09] MEDS: Ensure HIGH Protein Vanilla 8oz Bottle PO SCH ×4 (06:00→21:57)
[2021-10-09 06:25] LABS: Basophils # (auto) 0.1 10 ^3/uL (0-0.2); Basophils % (auto) 0.3 % (0.0-2.0); Eosinophils # (auto) 0 10 ^3/uL (0-0.8); Eosinophils % (auto) 0.2 % (0.0-7.0); Hematocrit 47.5 % (41.0-53.0); Hemoglobin 16.2 g/dL (13.5-17.5); Lymphocytes # (auto) 1.3 10 ^3/uL (0.4-5.4); Mean Corpuscular Hemoglobin 29.8 pg (28.0-32.0); Mean Corpuscular Hgb Conc. 34.1 g/dL (32.0-36.0); Mean Corpuscular Volume 87.3 fL (80.0-100.0); Monocytes # (auto) 0.6 10 ^3/uL (0-1.3); Monocytes % (auto) 2.8 % (0.0-12.0); Neutrophils # (auto) 19.9 10 ^3/uL (1.6-8.6); Neutrophils % (auto) 90.7 % (37.0-80.0); Red Blood Cells 5.44 10^6/uL (4.5-5.90); Red Cell Distribution Width 13.2 % (11.8-14.3)
[2021-10-09] MEDS: FUROSEMIDE 20 MG/2 ML VIAL IV SCH ×2 (06:41→17:39)
[2021-10-09] MEDS: LORazepam 0.5 MG TAB PO PRN (06:43)
[2021-10-09] MEDS: ALBUTEROL SULF HFA 90MCG INH 200DOSE IN PRN (06:45)
[2021-10-09] MEDS: BUDESONIDE (INHALATION) 180 MCG IH IN SCH ×2 (06:46→22:25)
[2021-10-09] MEDS: DexAMETHasone SOD PHOS 10MG/1ML VIAL INJ IV SCH (11:21)
[2021-10-09] MEDS: ZINC SULFATE 220mg CAP or TAB PO SCH (11:22)
[2021-10-09] MEDS: ASPirin 81 mg TAB PO SCH (11:22)
[2021-10-09] MEDS: POTASSIUM CHL 20 Meq TABLET PO SCH ×2 (11:22→22:10)
[2021-10-09] MEDS: ASCORBIC ACID 1,000 MG TAB PO SCH (11:23)
[2021-10-09] MEDS: CHOLECALCIFEROL (VITD3) 2,000 UNIT CAP/TAB PO SCH (11:23)
[2021-10-09] MEDS: ATORVASTATIN 20 MG TAB PO SCH (22:11)
[2021-10-10 05:07] VITALS: BP 111/78
[2021-10-10] MEDS: FUROSEMIDE 20 MG/2 ML VIAL IV SCH ×2 (06:04→18:10)
[2021-10-10] MEDS: Ensure HIGH Protein Vanilla 8oz Bottle PO SCH ×4 (06:04→22:59)
[2021-10-10 07:03] LABS: Hematocrit 47.6 % (41.0-53.0); Hemoglobin 16.8 g/dL (13.5-17.5); Mean Corpuscular Hemoglobin 30.9 pg (28.0-32.0); Mean Corpuscular Hgb Conc. 35.4 g/dL (32.0-36.0); Mean Corpuscular Volume 87.4 fL (80.0-100.0); Red Blood Cells 5.45 10^6/uL (4.5-5.90); Red Cell Distribution Width 13.3 % (11.8-14.3); White Blood Cell 27.3 10^3/uL (4.4-10.8)
[2021-10-10 07:05] LABS: Basophils % (manual) 0 (0.0-2.0); Blast Cells 0; Eosinophils % (manual) 0 (0-7); Metamyelocytes % 0; Myelocytes % 0; Promyelocytes % 0; Reactive Lymphocytes 0
[2021-10-10 08:20] VITALS: BP 111/78
[2021-10-10 09:00] VITALS: BP 111/68
[2021-10-10 09:16] LABS: Band Neutrophils % (manual) 1; Lymphocytes % (manual) 4 (10.0-50.0); Monocytes % (manual) 3 (0-12)
[2021-10-10] MEDS: BUDESONIDE (INHALATION) 180 MCG IH IN SCH ×2 (09:19→18:21)
[2021-10-10] MEDS: ALBUTEROL SULF HFA 90MCG INH 200DOSE IN PRN ×2 (09:19→18:21)
[2021-10-10] MEDS: ASPirin 81 mg TAB PO SCH (10:38)
[2021-10-10] MEDS: DexAMETHasone SOD PHOS 10MG/1ML VIAL INJ IV SCH (10:38)
[2021-10-10] MEDS: ZINC SULFATE 220mg CAP or TAB PO SCH (10:39)
[2021-10-10] MEDS: CHOLECALCIFEROL (VITD3) 2,000 UNIT CAP/TAB PO SCH (10:40)
[2021-10-10] MEDS: POTASSIUM CHL 20 Meq TABLET PO SCH ×2 (10:40→22:59)
[2021-10-10] MEDS: ASCORBIC ACID 1,000 MG TAB PO SCH (10:40)
[2021-10-10] MEDS: LORazepam 0.5 MG TAB PO PRN (16:07)
[2021-10-10 16:55] VITALS: BP 102/77
[2021-10-10 22:00] VITALS: BP 110/73
[2021-10-10] MEDS: ATORVASTATIN 20 MG TAB PO SCH (22:59)
[2021-10-11] VITALS (8 sets, daily range): BP systolic 94–112; BP diastolic 58–70
[2021-10-11] MEDS: ACETAMINOPHEN 500 MG TAB PO PRN ×2 (01:38→15:00)
[2021-10-11] MEDS: ALBUTEROL SULF HFA 90MCG INH 200DOSE IN PRN ×2 (05:48→21:44)
[2021-10-11] MEDS: BUDESONIDE (INHALATION) 180 MCG IH IN SCH ×2 (05:48→21:44)
[2021-10-11] MEDS: Ensure HIGH Protein Vanilla 8oz Bottle PO SCH ×4 (06:00→22:00)
[2021-10-11] MEDS: FUROSEMIDE 20 MG/2 ML VIAL IV SCH ×2 (06:00→17:42)
[2021-10-11 06:53] LABS: Hematocrit 46.1 % (41.0-53.0); Hemoglobin 16.1 g/dL (13.5-17.5); Mean Corpuscular Hemoglobin 30.1 pg (28.0-32.0); Mean Corpuscular Hgb Conc. 34.9 g/dL (32.0-36.0); Mean Corpuscular Volume 86.2 fL (80.0-100.0); Red Blood Cells 5.35 10^6/uL (4.5-5.90); Red Cell Distribution Width 13.5 % (11.8-14.3); White Blood Cell 27.8 10^3/uL (4.4-10.8)
[2021-10-11 06:55] LABS: Basophils % (manual) 0 (0.0-2.0); Blast Cells 0; Eosinophils % (manual) 0 (0-7); Metamyelocytes % 0; Myelocytes % 0; Promyelocytes % 0; Reactive Lymphocytes 0
[2021-10-11 07:18] LABS: BUN/Creatinine Ratio 39.5; Calcium 8.1 mg/dL (8.5-10.1); Potassium 4.3 mmol/L (3.5-5.1)
[2021-10-11] MEDS: ZINC SULFATE 220mg CAP or TAB PO SCH (10:15)
[2021-10-11] MEDS: ASPirin 81 mg TAB PO SCH (10:15)
[2021-10-11] MEDS: DexAMETHasone SOD PHOS 10MG/1ML VIAL INJ IV SCH (10:15)
[2021-10-11] MEDS: LORazepam 0.5 MG TAB PO PRN (10:16)
[2021-10-11] MEDS: CHOLECALCIFEROL (VITD3) 2,000 UNIT CAP/TAB PO SCH (10:16)
[2021-10-11] MEDS: POTASSIUM CHL 20 Meq TABLET PO SCH ×2 (10:16→22:00)
[2021-10-11] MEDS: ASCORBIC ACID 1,000 MG TAB PO SCH (10:16)
[2021-10-11 10:45] LABS: Band Neutrophils % (manual) 2; Lymphocytes % (manual) 7 (10.0-50.0); Monocytes % (manual) 3 (0-12)
[2021-10-11] MEDS: ATORVASTATIN 20 MG TAB PO SCH (22:00)
[2021-10-11] MEDS ORDERED: LORazepam 2MG/ML-1ML VIAL IV ONE (23:00)
[2021-10-12] VITALS (11 sets, daily range): BP systolic 96–112; BP diastolic 58–72
[2021-10-12] MEDS: FUROSEMIDE 20 MG/2 ML VIAL IV SCH ×2 (05:56→19:03)
[2021-10-12] MEDS: Ensure HIGH Protein Vanilla 8oz Bottle PO SCH ×4 (06:00→21:34)
[2021-10-12] MEDS: LORazepam 0.5 MG TAB PO PRN (08:28)
[2021-10-12] MEDS: ZINC SULFATE 220mg CAP or TAB PO SCH (10:00)
[2021-10-12] MEDS: ASCORBIC ACID 1,000 MG TAB PO SCH (10:00)
[2021-10-12] MEDS: BUDESONIDE (INHALATION) 180 MCG IH IN SCH ×2 (10:00→22:00)
[2021-10-12] MEDS: ASPirin 81 mg TAB PO SCH (10:00)
[2021-10-12] MEDS: POTASSIUM CHL 20 Meq TABLET PO SCH ×2 (10:00→21:34)
[2021-10-12] MEDS: CHOLECALCIFEROL (VITD3) 2,000 UNIT CAP/TAB PO SCH (10:00)
[2021-10-12] MEDS: DexAMETHasone SOD PHOS 10MG/1ML VIAL INJ IV SCH (11:58)
[2021-10-12] MEDS: LORazepam 2MG/ML-1ML VIAL IV PRN (12:14)
[2021-10-12] MEDS: ATORVASTATIN 20 MG TAB PO SCH (21:34)
[2021-10-13] VITALS (11 sets, daily range): BP systolic 96–112; BP diastolic 61–80
[2021-10-13] MEDS: FUROSEMIDE 20 MG/2 ML VIAL IV SCH (06:14)
[2021-10-13] MEDS: Ensure HIGH Protein Vanilla 8oz Bottle PO SCH ×4 (06:14→22:00)
[2021-10-13 06:26] LABS: Hematocrit 45.2 % (41.0-53.0); Hemoglobin 15.8 g/dL (13.5-17.5); Mean Corpuscular Hemoglobin 30.6 pg (28.0-32.0); Mean Corpuscular Volume 87.4 fL (80.0-100.0); Red Blood Cells 5.17 10^6/uL (4.5-5.90); Red Cell Distribution Width 13.1 % (11.8-14.3); White Blood Cell 26.5 10^3/uL (4.4-10.8)
[2021-10-13 06:37] LABS: Basophils % (manual) 0 (0.0-2.0); Blast Cells 0; Eosinophils % (manual) 0 (0-7); Metamyelocytes % 0; Myelocytes % 0; Promyelocytes % 0; Reactive Lymphocytes 0
[2021-10-13 06:39] LABS: BUN/Creatinine Ratio 44.7; Calcium 8.1 mg/dL (8.5-10.1); Potassium 4.3 mmol/L (3.5-5.1)
[2021-10-13 08:29] LABS: Band Neutrophils % (manual) 3; Lymphocytes % (manual) 5 (10.0-50.0); Monocytes % (manual) 4 (0-12)
[2021-10-13] MEDS: ALBUTEROL SULF HFA 90MCG INH 200DOSE IN PRN ×2 (09:17→22:15)
[2021-10-13] MEDS: BUDESONIDE (INHALATION) 180 MCG IH IN SCH ×2 (09:17→22:15)
[2021-10-13] MEDS: POTASSIUM CHL 20 Meq TABLET PO SCH ×2 (10:00→21:37)
[2021-10-13] MEDS: ASPirin 81 mg TAB PO SCH (11:32)
[2021-10-13] MEDS: ASCORBIC ACID 1,000 MG TAB PO SCH (11:32)
[2021-10-13] MEDS: ZINC SULFATE 220mg CAP or TAB PO SCH (11:32)
[2021-10-13] MEDS: DexAMETHasone SOD PHOS 10MG/1ML VIAL INJ IV SCH (11:32)
[2021-10-13] MEDS: CHOLECALCIFEROL (VITD3) 2,000 UNIT CAP/TAB PO SCH (11:33)
[2021-10-13] MEDS ORDERED: PPN PER PHARMACY 0 ML IV SCH (17:45)
[2021-10-13] MEDS ORDERED: AMINO ACID INFUSION IN D10W 1,000 ML IV NR (20:00)
[2021-10-13] MEDS: ATORVASTATIN 20 MG TAB PO SCH (21:37)
[2021-10-13] MEDS: InsuLIN REG 1unit/0.01ml Soln (100units/ml) SC SCH (23:57)
[2021-10-13] MEDS: ACCU-CHEK COMFORT CURVE STRIP VI SCH (23:59)
[2021-10-14] VITALS (12 sets, daily range): BP systolic 100–112; BP diastolic 57–80
[2021-10-14] MEDS ORDERED: DEXTROSE (50%) 50ML SYRG IV SCH
[2021-10-14] MEDS: BUDESONIDE (INHALATION) 180 MCG IH IN SCH ×2 (05:59→22:15)
[2021-10-14] MEDS: ALBUTEROL SULF HFA 90MCG INH 200DOSE IN PRN ×2 (05:59→23:31)
[2021-10-14] MEDS: Ensure HIGH Protein Vanilla 8oz Bottle PO SCH ×4 (06:00→21:14)
[2021-10-14] MEDS: FUROSEMIDE 20 MG/2 ML VIAL IV SCH ×2 (06:27→18:23)
[2021-10-14] MEDS: ACCU-CHEK COMFORT CURVE STRIP VI SCH ×3 (06:27→18:11)
[2021-10-14] MEDS: InsuLIN REG 1unit/0.01ml Soln (100units/ml) SC SCH ×3 (06:29→18:24)
[2021-10-14 07:13] LABS: Albumin 1.8 g/dL (3.4-5.0); Calcium 8.2 mg/dL (8.5-10.1); Magnesium 2.6 mg/dL (1.6-2.6); Potassium 4.2 mmol/L (3.5-5.1)
[2021-10-14 07:21] LABS: BUN/Creatinine Ratio 52.2; Bilirubin, Total 1.4 mg/dL (0.2-1.0); Phosphorus 4.3 mg/dL (2.5-4.90); Pre Albumin 11.7 mg/dL (20.0-40.0); Total Protein 7.3 g/dL (6.4-8.2)
[2021-10-14] MEDS: LORazepam 2MG/ML-1ML VIAL IV PRN ×2 (07:45→21:14)
[2021-10-14] MEDS: ZINC SULFATE 220mg CAP or TAB PO SCH (10:00)
[2021-10-14] MEDS: DexAMETHasone SOD PHOS 10MG/1ML VIAL INJ IV SCH (10:00)
[2021-10-14] MEDS: ASCORBIC ACID 1,000 MG TAB PO SCH (10:00)
[2021-10-14] MEDS: ASPirin 81 mg TAB PO SCH (10:00)
[2021-10-14] MEDS: POTASSIUM CHL 20 Meq TABLET PO SCH ×2 (10:00→21:14)
[2021-10-14] MEDS: CHOLECALCIFEROL (VITD3) 2,000 UNIT CAP/TAB PO SCH (10:00)
[2021-10-14 16:32] LABS: BUN/Creatinine Ratio 51.4; Potassium 4.6 mmol/L (3.5-5.1)
[2021-10-14] MEDS ORDERED: PPN PER PHARMACY IV NR ×9 (20:00)
[2021-10-14] MEDS: ATORVASTATIN 20 MG TAB PO SCH (21:14)
[2021-10-15] VITALS (11 sets, daily range): BP systolic 107–167; BP diastolic 54–74
[2021-10-15] MEDS: ACCU-CHEK COMFORT CURVE STRIP VI SCH ×4 (00:38→18:17)
[2021-10-15] MEDS: InsuLIN REG 1unit/0.01ml Soln (100units/ml) SC SCH ×4 (00:39→18:18)
[2021-10-15] MEDS: LORazepam 2MG/ML-1ML VIAL IV PRN ×4 (01:55→20:42)
[2021-10-15] MEDS: FUROSEMIDE 20 MG/2 ML VIAL IV SCH ×2 (06:11→18:35)
[2021-10-15] MEDS: Ensure HIGH Protein Vanilla 8oz Bottle PO SCH ×4 (06:12→22:08)
[2021-10-15] MEDS: ALBUTEROL SULF HFA 90MCG INH 200DOSE IN PRN ×2 (06:15→20:10)
[2021-10-15] MEDS: BUDESONIDE (INHALATION) 180 MCG IH IN SCH ×2 (06:15→19:18)
[2021-10-15 06:24] LABS: Potassium 4.5 mmol/L (3.5-5.1)
[2021-10-15 06:34] LABS: Albumin 2.1 g/dL (3.4-5.0); BUN/Creatinine Ratio 51.5; Bilirubin, Total 1.4 mg/dL (0.2-1.0); Calcium 8.2 mg/dL (8.5-10.1); Magnesium 3.5 mg/dL (1.6-2.6); Phosphorus 3.9 mg/dL (2.5-4.90); Total Protein 7.8 g/dL (6.4-8.2)
[2021-10-15 06:54] LABS: Basophils # (auto) 0.1 10 ^3/uL (0-0.2); Basophils % (auto) 0.4 % (0.0-2.0); Eosinophils # (auto) 0.1 10 ^3/uL (0-0.8); Eosinophils % (auto) 0.2 % (0.0-7.0); Hemoglobin 16.4 g/dL (13.5-17.5); Lymphocytes # (auto) 1.6 10 ^3/uL (0.4-5.4); Lymphocytes % (auto) 6.1 % (10.0-50.0); Mean Corpuscular Hemoglobin 29.8 pg (28.0-32.0); Mean Corpuscular Hgb Conc. 32.8 g/dL (32.0-36.0); Mean Corpuscular Volume 90.9 fL (80.0-100.0); Monocytes % (auto) 3.8 % (0.0-12.0); Neutrophils # (auto) 24.1 10 ^3/uL (1.6-8.6); Neutrophils % (auto) 89.5 % (37.0-80.0); Red Cell Distribution Width 13.8 % (11.8-14.3); White Blood Cell 26.9 10^3/uL (4.4-10.8)
[2021-10-15] MEDS: ASCORBIC ACID 1,000 MG TAB PO SCH (10:00)
[2021-10-15] MEDS: ZINC SULFATE 220mg CAP or TAB PO SCH (10:00)
[2021-10-15] MEDS: ASPirin 81 mg TAB PO SCH (10:00)
[2021-10-15] MEDS: CHOLECALCIFEROL (VITD3) 2,000 UNIT CAP/TAB PO SCH (10:00)
[2021-10-15] MEDS: DexAMETHasone SOD PHOS 10MG/1ML VIAL INJ IV SCH ×2 (10:33→18:24)
[2021-10-15] MEDS: POTASSIUM CHL 20 Meq TABLET PO SCH ×2 (10:33→22:08)
[2021-10-15] MEDS ORDERED: PPN PER PHARMACY IV NR ×8 (20:00)
[2021-10-15] MEDS: ATORVASTATIN 20 MG TAB PO SCH (22:09)
[2021-10-16] VITALS (11 sets, daily range): BP systolic 101–119; BP diastolic 54–80
[2021-10-16] MEDS: ACCU-CHEK COMFORT CURVE STRIP VI SCH ×4 (00:07→18:06)
[2021-10-16] MEDS: InsuLIN REG 1unit/0.01ml Soln (100units/ml) SC SCH ×4 (00:08→18:00)
[2021-10-16] MEDS: DexAMETHasone SOD PHOS 10MG/1ML VIAL INJ IV SCH ×3 (02:40→18:21)
[2021-10-16] MEDS: LORazepam 2MG/ML-1ML VIAL IV PRN ×5 (02:56→22:37)
[2021-10-16] MEDS: Ensure HIGH Protein Vanilla 8oz Bottle PO SCH ×4 (06:00→21:41)
[2021-10-16] MEDS: ALBUTEROL SULF HFA 90MCG INH 200DOSE IN PRN ×2 (06:03→22:15)
[2021-10-16] MEDS: FUROSEMIDE 20 MG/2 ML VIAL IV SCH ×2 (06:28→18:21)
[2021-10-16 06:43] LABS: Potassium 4.4 mmol/L (3.5-5.1)
[2021-10-16 06:50] LABS: Bilirubin, Total 1.5 mg/dL (0.2-1.0); Magnesium 3.2 mg/dL (1.6-2.6); Phosphorus 4.2 mg/dL (2.5-4.90); Total Protein 7.4 g/dL (6.4-8.2)
[2021-10-16] MEDS: POTASSIUM CHL 20 Meq TABLET PO SCH ×2 (07:43→21:41)
[2021-10-16] MEDS: ASPirin 81 mg TAB PO SCH (07:43)
[2021-10-16] MEDS: ZINC SULFATE 220mg CAP or TAB PO SCH (07:43)
[2021-10-16] MEDS: ASCORBIC ACID 1,000 MG TAB PO SCH (07:44)
[2021-10-16] MEDS: CHOLECALCIFEROL (VITD3) 2,000 UNIT CAP/TAB PO SCH (07:44)
[2021-10-16] MEDS: PPN PER PHARMACY IV NR ×9 (20:09)
[2021-10-16] MEDS: ATORVASTATIN 20 MG TAB PO SCH (21:41)
[2021-10-16] MEDS: BUDESONIDE (INHALATION) 180 MCG IH IN SCH (22:15)
[2021-10-17] VITALS (9 sets, daily range): BP systolic 101–111; BP diastolic 60–71
[2021-10-17] MEDS: InsuLIN REG 1unit/0.01ml Soln (100units/ml) SC SCH ×4 (00:57→17:47)
[2021-10-17] MEDS: DexAMETHasone SOD PHOS 10MG/1ML VIAL INJ IV SCH ×3 (01:17→17:45)
[2021-10-17] MEDS: LORazepam 2MG/ML-1ML VIAL IV PRN ×4 (02:42→19:56)
[2021-10-17] MEDS: BUDESONIDE (INHALATION) 180 MCG IH IN SCH ×2 (05:47→22:00)
[2021-10-17] MEDS: ALBUTEROL SULF HFA 90MCG INH 200DOSE IN PRN ×2 (05:48→23:20)
[2021-10-17] MEDS: Ensure HIGH Protein Vanilla 8oz Bottle PO SCH ×4 (05:50→21:36)
[2021-10-17] MEDS: ACCU-CHEK COMFORT CURVE STRIP VI SCH ×4 (05:50→17:29)
[2021-10-17] MEDS: FUROSEMIDE 20 MG/2 ML VIAL IV SCH ×2 (05:50→17:46)
[2021-10-17 06:47] LABS: Magnesium 2.8 mg/dL (1.6-2.6); Potassium 4.2 mmol/L (3.5-5.1)
[2021-10-17 06:51] LABS: BUN/Creatinine Ratio 58.6; Bilirubin, Total 1.3 mg/dL (0.2-1.0); Phosphorus 3.9 mg/dL (2.5-4.90); Total Protein 6.9 g/dL (6.4-8.2)
[2021-10-17] MEDS: CHOLECALCIFEROL (VITD3) 2,000 UNIT CAP/TAB PO SCH (10:00)
[2021-10-17] MEDS: POTASSIUM CHL 20 Meq TABLET PO SCH ×2 (10:00→21:37)
[2021-10-17] MEDS: ASCORBIC ACID 1,000 MG TAB PO SCH (10:00)
[2021-10-17] MEDS: ZINC SULFATE 220mg CAP or TAB PO SCH (10:00)
[2021-10-17] MEDS: ASPirin 81 mg TAB PO SCH (11:09)
[2021-10-17] MEDS: PPN PER PHARMACY IV NR ×9 (19:53)
[2021-10-17] MEDS ORDERED: PPN PER PHARMACY IV NR ×10 (20:00)
[2021-10-17] MEDS: ATORVASTATIN 20 MG TAB PO SCH (21:37)
[2021-10-18] VITALS (10 sets, daily range): BP systolic 104–131; BP diastolic 62–69
[2021-10-18] MEDS: InsuLIN REG 1unit/0.01ml Soln (100units/ml) SC SCH ×5 (00:57→23:55)
[2021-10-18] MEDS: DexAMETHasone SOD PHOS 10MG/1ML VIAL INJ IV SCH ×3 (01:02→18:01)
[2021-10-18] MEDS: Ensure HIGH Protein Vanilla 8oz Bottle PO SCH ×4 (06:00→20:29)
[2021-10-18] MEDS: ACCU-CHEK COMFORT CURVE STRIP VI SCH ×5 (06:03→23:55)
[2021-10-18] MEDS: FUROSEMIDE 20 MG/2 ML VIAL IV SCH ×2 (06:05→18:01)
[2021-10-18 08:06] LABS: Albumin 1.9 g/dL (3.4-5.0); Bilirubin, Total 1.4 mg/dL (0.2-1.0); Magnesium 3.2 mg/dL (1.6-2.6); Phosphorus 4.1 mg/dL (2.5-4.90); Total Protein 6.9 g/dL (6.4-8.2)
[2021-10-18] MEDS: ASPirin 81 mg TAB PO SCH (08:23)
[2021-10-18] MEDS: CHOLECALCIFEROL (VITD3) 2,000 UNIT CAP/TAB PO SCH (08:25)
[2021-10-18] MEDS: POTASSIUM CHL 20 Meq TABLET PO SCH (08:29)
[2021-10-18] MEDS: ZINC SULFATE 220mg CAP or TAB PO SCH (08:29)
[2021-10-18] MEDS: ASCORBIC ACID 1,000 MG TAB PO SCH (08:30)
[2021-10-18] MEDS: BUDESONIDE (INHALATION) 180 MCG IH IN SCH ×2 (08:42→22:00)
[2021-10-18] MEDS: ALBUTEROL SULF HFA 90MCG INH 200DOSE IN PRN (08:42)
[2021-10-18] MEDS ORDERED: PPN PER PHARMACY IV NR ×18 (20:00)
[2021-10-18] MEDS: ATORVASTATIN 20 MG TAB PO SCH (20:29)
[2021-10-18] MEDS: LORazepam 2MG/ML-1ML VIAL IV PRN (20:50)
[2021-10-19] VITALS (10 sets, daily range): BP systolic 104–131; BP diastolic 61–72
[2021-10-19] MEDS: DexAMETHasone SOD PHOS 10MG/1ML VIAL INJ IV SCH ×3 (01:24→17:38)
[2021-10-19] MEDS: Ensure HIGH Protein Vanilla 8oz Bottle PO SCH ×4 (05:30→21:00)
[2021-10-19] MEDS: FUROSEMIDE 20 MG/2 ML VIAL IV SCH ×2 (05:30→17:39)
[2021-10-19] MEDS: InsuLIN REG 1unit/0.01ml Soln (100units/ml) SC SCH ×3 (05:45→17:31)
[2021-10-19] MEDS: ACCU-CHEK COMFORT CURVE STRIP VI SCH ×3 (05:47→17:30)
[2021-10-19 07:37] LABS: Potassium 3.5 mmol/L (3.5-5.1)
[2021-10-19 07:55] LABS: Albumin 1.9 g/dL (3.4-5.0); BUN/Creatinine Ratio 70.6; Bilirubin, Total 1.4 mg/dL (0.2-1.0); Calcium 7.8 mg/dL (8.5-10.1); Phosphorus 3.7 mg/dL (2.5-4.90)
[2021-10-19] MEDS: LORazepam 2MG/ML-1ML VIAL IV PRN ×2 (14:50→19:31)
[2021-10-19] MEDS: BUDESONIDE (INHALATION) 180 MCG IH IN SCH ×2 (15:26→22:00)
[2021-10-19] MEDS: ALBUTEROL SULF HFA 90MCG INH 200DOSE IN PRN (15:26)
[2021-10-19] MEDS ORDERED: PPN PER PHARMACY IV NR ×9 (20:00)
[2021-10-19] MEDS: ATORVASTATIN 20 MG TAB PO SCH (21:02)
[2021-10-20] VITALS (11 sets, daily range): BP systolic 112–156; BP diastolic 62–71
[2021-10-20] MEDS: InsuLIN REG 1unit/0.01ml Soln (100units/ml) SC SCH ×4 (00:51→18:00)
[2021-10-20] MEDS: DexAMETHasone SOD PHOS 10MG/1ML VIAL INJ IV SCH ×3 (02:57→18:21)
[2021-10-20] MEDS: Ensure HIGH Protein Vanilla 8oz Bottle PO SCH ×4 (06:00→20:45)
[2021-10-20] MEDS: ACCU-CHEK COMFORT CURVE STRIP VI SCH ×4 (06:00→18:23)
[2021-10-20] MEDS: FUROSEMIDE 20 MG/2 ML VIAL IV SCH ×2 (06:49→18:23)
[2021-10-20 07:02] LABS: Hematocrit 44.3 % (41.0-53.0); Mean Corpuscular Hemoglobin 29.5 pg (28.0-32.0); Mean Corpuscular Hgb Conc. 33.8 g/dL (32.0-36.0); Mean Corpuscular Volume 87.5 fL (80.0-100.0); Red Blood Cells 5.07 10^6/uL (4.5-5.90); Red Cell Distribution Width 13.9 % (11.8-14.3); White Blood Cell 24.3 10^3/uL (4.4-10.8)
[2021-10-20 07:15] LABS: Magnesium 3.2 mg/dL (1.6-2.6); Potassium 3.8 mmol/L (3.5-5.1)
[2021-10-20 07:19] LABS: BUN/Creatinine Ratio 71.7; Bilirubin, Total 1.5 mg/dL (0.2-1.0); Phosphorus 3.5 mg/dL (2.5-4.90); Total Protein 6.5 g/dL (6.4-8.2)
[2021-10-20 07:25] LABS: Basophils % (manual) 0 (0.0-2.0); Blast Cells 0; Eosinophils % (manual) 0 (0-7); Metamyelocytes % 0; Myelocytes % 0; Promyelocytes % 0; Reactive Lymphocytes 0
[2021-10-20 08:41] LABS: Band Neutrophils % (manual) 1; Lymphocytes % (manual) 4 (10.0-50.0); Monocytes % (manual) 4 (0-12)
[2021-10-20] MEDS: LORazepam 2MG/ML-1ML VIAL IV PRN ×2 (16:38→20:45)
[2021-10-20] MEDS: BUDESONIDE (INHALATION) 180 MCG IH IN SCH (19:12)
[2021-10-20] MEDS ORDERED: PPN PER PHARMACY IV NR ×7 (20:00)
[2021-10-20] MEDS: ATORVASTATIN 20 MG TAB PO SCH (20:45)
[2021-10-21] VITALS (14 sets, daily range): BP systolic 107–122; BP diastolic 47–77
[2021-10-21] MEDS: ACCU-CHEK COMFORT CURVE STRIP VI SCH ×4 (00:21→17:41)
[2021-10-21] MEDS: InsuLIN REG 1unit/0.01ml Soln (100units/ml) SC SCH ×4 (00:22→17:59)
[2021-10-21] MEDS: DexAMETHasone SOD PHOS 10MG/1ML VIAL INJ IV SCH ×3 (01:51→17:41)
[2021-10-21] MEDS: LORazepam 2MG/ML-1ML VIAL IV PRN ×2 (05:21→10:07)
[2021-10-21] MEDS: Ensure HIGH Protein Vanilla 8oz Bottle PO SCH ×4 (05:42→22:00)
[2021-10-21] MEDS: FUROSEMIDE 20 MG/2 ML VIAL IV SCH ×2 (05:42→18:25)
[2021-10-21 06:20] LABS: Albumin 2.1 g/dL (3.4-5.0); Calcium 8.1 mg/dL (8.5-10.1); Magnesium 3.2 mg/dL (1.6-2.6); Potassium 3.9 mmol/L (3.5-5.1)
[2021-10-21 06:26] LABS: BUN/Creatinine Ratio 78.6; Bilirubin, Total 1.5 mg/dL (0.2-1.0); Phosphorus 3.4 mg/dL (2.5-4.90); Pre Albumin 22.8 mg/dL (20.0-40.0)
[2021-10-21] MEDS: ALBUTEROL SULF 2.5 MG/0.5ML(0.5%) NEB SOLN NEB PRN ×2 (11:01→19:21)
[2021-10-21] MEDS: BUDESONIDE (INHALATION) 0.5 MG/2 ML NEB NEB SCH ×2 (11:02→19:20)
[2021-10-21] MEDS: MORPHINE SULFATE INJECTION 2 MG/ML SYRG IV PRN (19:10)
[2021-10-21] MEDS ORDERED: PPN PER PHARMACY IV NR ×8 (20:00)
[2021-10-21] MEDS: ATORVASTATIN 20 MG TAB PO SCH (22:00)
[2021-10-22] VITALS (11 sets, daily range): BP systolic 112–120; BP diastolic 77–87
[2021-10-22] MEDS: ACCU-CHEK COMFORT CURVE STRIP VI SCH ×4 (01:38→17:37)
[2021-10-22] MEDS: InsuLIN REG 1unit/0.01ml Soln (100units/ml) SC SCH ×4 (01:46→18:10)
[2021-10-22] MEDS: LORazepam 2MG/ML-1ML VIAL IV PRN ×4 (02:59→22:01)
[2021-10-22] MEDS: Ensure HIGH Protein Vanilla 8oz Bottle PO SCH ×4 (06:00→21:03)
[2021-10-22] MEDS: BUDESONIDE (INHALATION) 0.5 MG/2 ML NEB NEB SCH ×2 (06:07→22:34)
[2021-10-22] MEDS: ALBUTEROL SULF 2.5 MG/0.5ML(0.5%) NEB SOLN NEB PRN ×2 (06:07→22:34)
[2021-10-22] MEDS: FUROSEMIDE 20 MG/2 ML VIAL IV SCH ×2 (06:35→17:36)
[2021-10-22 07:03] LABS: Potassium 3.6 mmol/L (3.5-5.1)
[2021-10-22 07:10] LABS: BUN/Creatinine Ratio 89.5; Bilirubin, Total 1.9 mg/dL (0.2-1.0); Calcium 8.2 mg/dL (8.5-10.1); Magnesium 3.1 mg/dL (1.6-2.6); Phosphorus 3.3 mg/dL (2.5-4.90); Total Protein 6.7 g/dL (6.4-8.2)
[2021-10-22] MEDS: DexAMETHasone SOD PHOS 10MG/1ML VIAL INJ IV SCH (09:04)
[2021-10-22] MEDS ORDERED: POTASSIUM CHL 20MEQ/100ML 100 ML IV ONE (11:00)
[2021-10-22] MEDS ORDERED: cefTRIAXone 1GM/50ML D5W 50 ML IV ONE (15:30)
[2021-10-22] MEDS ORDERED: PPN PER PHARMACY IV NR ×15 (16:15→20:00)
[2021-10-22] MEDS ORDERED: POTASSIUM PHOSPHATE IV NR ×7 (20:00)
[2021-10-22] MEDS ORDERED: SODIUM CHLORIDE IV NR ×7 (20:00)
[2021-10-22] MEDS ORDERED: [UNRECOGNIZED DRUG - OTHER] IV NR ×7 (20:00)
[2021-10-22] MEDS ORDERED: POTASSIUM CHLORIDE IV NR ×7 (20:00)
[2021-10-22] MEDS: ATORVASTATIN 20 MG TAB PO SCH (21:04)
[2021-10-23] MEDS: InsuLIN REG 1unit/0.01ml Soln (100units/ml) SC SCH ×4 (00:31→17:35)
[2021-10-23] MEDS: ACCU-CHEK COMFORT CURVE STRIP VI SCH ×4 (00:31→17:18)
[2021-10-23 05:00] VITALS: BP 104/74
[2021-10-23] MEDS: FUROSEMIDE 20 MG/2 ML VIAL IV SCH ×2 (05:53→17:42)
[2021-10-23] MEDS: Ensure HIGH Protein Vanilla 8oz Bottle PO SCH ×4 (05:54→21:55)
[2021-10-23] MEDS: LORazepam 2MG/ML-1ML VIAL IV PRN ×3 (06:00→20:26)
[2021-10-23] MEDS: ALBUTEROL SULF 2.5 MG/0.5ML(0.5%) NEB SOLN NEB PRN (06:26)
[2021-10-23] MEDS: BUDESONIDE (INHALATION) 0.5 MG/2 ML NEB NEB SCH ×2 (06:27→22:27)
[2021-10-23 06:58] LABS: Albumin 2.2 g/dL (3.4-5.0); Calcium 8.1 mg/dL (8.5-10.1); Magnesium 2.9 mg/dL (1.6-2.6); Potassium 3.9 mmol/L (3.5-5.1)
[2021-10-23 07:01] LABS: BUN/Creatinine Ratio 72.2; Bilirubin, Total 2.6 mg/dL (0.2-1.0); Phosphorus 4.2 mg/dL (2.5-4.90); Total Protein 7.2 g/dL (6.4-8.2)
[2021-10-23] MEDS: DexAMETHasone SOD PHOS 10MG/1ML VIAL INJ IV SCH (09:31)
[2021-10-23] MEDS: cefTRIAXone 1GM/50ML D5W 50 ML IV SCH (09:32)
[2021-10-23 09:42] VITALS: BP 120/89
[2021-10-23 12:48] VITALS: BP 117/80
[2021-10-23 16:49] VITALS: BP 120/71
[2021-10-23] MEDS ORDERED: PPN PER PHARMACY IV NR ×7 (20:00)
[2021-10-23 20:26] VITALS: BP 120/79
[2021-10-23] MEDS: ATORVASTATIN 20 MG TAB PO SCH (21:55)
[2021-10-23] MEDS: ENOXAPARIN SOD 40 MG/0.4 ML SYRINGE SC SCH (21:55)
[2021-10-23 22:00] VITALS: BP 117/77
[2021-10-24] VITALS (10 sets, daily range): BP systolic 113–132; BP diastolic 80–90
[2021-10-24] MEDS: ACCU-CHEK COMFORT CURVE STRIP VI SCH ×4 (00:03→17:42)
[2021-10-24] MEDS: InsuLIN REG 1unit/0.01ml Soln (100units/ml) SC SCH ×4 (00:05→17:42)
[2021-10-24] MEDS: LORazepam 2MG/ML-1ML VIAL IV PRN ×4 (00:48→22:46)
[2021-10-24] MEDS: FUROSEMIDE 20 MG/2 ML VIAL IV SCH ×2 (05:29→17:41)
[2021-10-24] MEDS: Ensure HIGH Protein Vanilla 8oz Bottle PO SCH ×4 (05:40→22:00)
[2021-10-24] MEDS: ALBUTEROL SULF 2.5 MG/0.5ML(0.5%) NEB SOLN NEB PRN ×2 (06:23→19:18)
[2021-10-24 06:24] LABS: Albumin 2.3 g/dL (3.4-5.0); Calcium 8.9 mg/dL (8.5-10.1); Magnesium 3.7 mg/dL (1.6-2.6); Potassium 3.9 mmol/L (3.5-5.1)
[2021-10-24] MEDS: BUDESONIDE (INHALATION) 0.5 MG/2 ML NEB NEB SCH ×2 (06:24→19:18)
[2021-10-24 06:27] LABS: BUN/Creatinine Ratio 68.1; Bilirubin, Total 3.1 mg/dL (0.2-1.0); Phosphorus 4.4 mg/dL (2.5-4.90); Total Protein 7.8 g/dL (6.4-8.2)
[2021-10-24] MEDS: ENOXAPARIN SOD 40 MG/0.4 ML SYRINGE SC SCH ×2 (09:44→21:08)
[2021-10-24] MEDS: cefTRIAXone 1GM/50ML D5W 50 ML IV SCH (09:44)
[2021-10-24] MEDS: DexAMETHasone SOD PHOS 10MG/1ML VIAL INJ IV SCH (09:44)
[2021-10-24] MEDS ORDERED: ACETAMINOPHEN 500 MG TAB PO PRN (15:00)
[2021-10-24] MEDS ORDERED: PPN PER PHARMACY IV NR ×8 (20:00)
[2021-10-25] VITALS (12 sets, daily range): BP systolic 100–113; BP diastolic 70–83
[2021-10-25] MEDS: ACCU-CHEK COMFORT CURVE STRIP VI SCH ×4 (00:29→18:09)
[2021-10-25] MEDS: InsuLIN REG 1unit/0.01ml Soln (100units/ml) SC SCH ×4 (00:31→18:00)
[2021-10-25] MEDS: LORazepam 2MG/ML-1ML VIAL IV PRN ×3 (02:52→22:54)
[2021-10-25] MEDS: ALBUTEROL SULF 2.5 MG/0.5ML(0.5%) NEB SOLN NEB PRN ×2 (05:30→19:38)
[2021-10-25] MEDS: BUDESONIDE (INHALATION) 0.5 MG/2 ML NEB NEB SCH ×2 (05:30→19:38)
[2021-10-25] MEDS: Ensure HIGH Protein Vanilla 8oz Bottle PO SCH ×4 (05:40→22:30)
[2021-10-25] MEDS: FUROSEMIDE 20 MG/2 ML VIAL IV SCH ×2 (05:40→18:09)
[2021-10-25 08:15] LABS: Hemoglobin 16.5 g/dL (13.5-17.5)
[2021-10-25 08:20] LABS: Hematocrit 50.1 % (41.0-53.0); Mean Corpuscular Hemoglobin 29.4 pg (28.0-32.0); Mean Corpuscular Hgb Conc. 32.9 g/dL (32.0-36.0); Mean Corpuscular Volume 89.4 fL (80.0-100.0); Red Blood Cells 5.61 10^6/uL (4.5-5.90)
[2021-10-25 08:31] LABS: Calcium 9.2 mg/dL (8.5-10.1); Potassium 4.1 mmol/L (3.5-5.1); White Blood Cell 37.4 10^3/uL (4.4-10.8)
[2021-10-25 08:32] LABS: Basophils % (manual) 0 (0.0-2.0); Blast Cells 0; Eosinophils % (manual) 0 (0-7); Metamyelocytes % 0; Myelocytes % 0; Promyelocytes % 0; Reactive Lymphocytes 0
[2021-10-25 08:45] LABS: Albumin 2.3 g/dL (3.4-5.0); BUN/Creatinine Ratio 90.5; Bilirubin, Total 2.2 mg/dL (0.2-1.0); Magnesium 3.7 mg/dL (1.6-2.6); Phosphorus 5.3 mg/dL (2.5-4.90); Total Protein 7.7 g/dL (6.4-8.2)
[2021-10-25] MEDS: DexAMETHasone SOD PHOS 10MG/1ML VIAL INJ IV SCH (08:53)
[2021-10-25] MEDS: ENOXAPARIN SOD 40 MG/0.4 ML SYRINGE SC SCH ×2 (08:54→22:29)
[2021-10-25] MEDS ORDERED: levoFLOXacin 500MG 100 ML IV SCH (10:00)
[2021-10-25 11:54] LABS: Band Neutrophils % (manual) 6; Lymphocytes % (manual) 4 (10.0-50.0); Monocytes % (manual) 5 (0-12)
[2021-10-25] MEDS ORDERED: PIPERACILLIN-TAZOB 2.25GM 50 ML IV ONE (12:45)
[2021-10-25] MEDS ORDERED: PIPERACILLIN-TAZOB 2.25GM 50 ML IV SCH (13:00)
[2021-10-25] MEDS: PIPERACILLIN-TAZOB 3.375GM 100 ML IV SCH ×2 (13:36→22:29)
[2021-10-25] MEDS ORDERED: PPN PER PHARMACY IV NR ×6 (20:00)
[2021-10-26] VITALS (7 sets, daily range): BP systolic 82–149; BP diastolic 40–110
[2021-10-26] MEDS: ACCU-CHEK COMFORT CURVE STRIP VI SCH ×4 (00:26→17:09)
[2021-10-26] MEDS: InsuLIN REG 1unit/0.01ml Soln (100units/ml) SC SCH ×4 (00:28→17:11)
[2021-10-26] MEDS: PIPERACILLIN-TAZOB 3.375GM 100 ML IV SCH (05:11)
[2021-10-26] MEDS: Ensure HIGH Protein Vanilla 8oz Bottle PO SCH ×3 (05:36→17:11)
[2021-10-26] MEDS: FUROSEMIDE 20 MG/2 ML VIAL IV SCH (05:36)
[2021-10-26] MEDS: ALBUTEROL SULF 2.5 MG/0.5ML(0.5%) NEB SOLN NEB PRN ×2 (05:52→22:38)
[2021-10-26 09:26] LABS: Hematocrit 50.4 % (41.0-53.0); Mean Corpuscular Hemoglobin 29.3 pg (28.0-32.0); Mean Corpuscular Hgb Conc. 31.8 g/dL (32.0-36.0); Mean Corpuscular Volume 92.3 fL (80.0-100.0); Red Blood Cells 5.46 10^6/uL (4.5-5.90); Red Cell Distribution Width 15.2 % (11.8-14.3)
[2021-10-26 09:35] LABS: White Blood Cell 36.8 10^3/uL (4.4-10.8)
[2021-10-26 09:37] LABS: Basophils % (manual) 0 (0.0-2.0); Blast Cells 0; Eosinophils % (manual) 0 (0-7); Metamyelocytes % 0; Myelocytes % 0; Promyelocytes % 0; Reactive Lymphocytes 0
[2021-10-26] MEDS: BUDESONIDE (INHALATION) 0.5 MG/2 ML NEB NEB SCH ×2 (10:00→22:38)
[2021-10-26 10:06] LABS: BUN/Creatinine Ratio 52.3
[2021-10-26 10:07] LABS: Bilirubin, Total 2.2 mg/dL (0.2-1.0); Calcium 8.7 mg/dL (8.5-10.1); Phosphorus 6.8 mg/dL (2.5-4.90); Total Protein 7.5 g/dL (6.4-8.2)
[2021-10-26 10:34] LABS: Band Neutrophils % (manual) 25; Lymphocytes % (manual) 4 (10.0-50.0); Monocytes % (manual) 1 (0-12)
[2021-10-26] MEDS: DexAMETHasone SOD PHOS 10MG/1ML VIAL INJ IV SCH (10:46)
[2021-10-26] MEDS: ENOXAPARIN SOD 40 MG/0.4 ML SYRINGE SC SCH (10:47)
[2021-10-26] MEDS ORDERED: SOD CHL 0.45% 1,000 ML IV SCH (12:00)
[2021-10-26] MEDS ORDERED: PIPERACILLIN-TAZOB 2.25GM 50 ML IV SCH (14:00)
[2021-10-26] MEDS ORDERED: INSULIN R IV NR ×4 (20:00)
[2021-10-26] MEDS ORDERED: DEXTROSE IV NR ×4 (20:00)
[2021-10-26] MEDS ORDERED: PPN PER PHARMACY IV NR ×4 (20:00)
[2021-10-26] MEDS ORDERED: AMINO ACID INFUSION IV NR ×4 (20:00)
[2021-10-26] MEDS ORDERED: [UNRECOGNIZED DRUG - OTHER] IV NR ×4 (20:00)
[2021-10-26] MEDS: MORPHINE SULFATE INJECTION 2 MG/ML SYRG IV PRN (21:01)
[2021-10-26] MEDS: LORazepam 2MG/ML-1ML VIAL IV PRN (21:01)
== END 2021-10-26 21:24 | DRG 720 ==
LOC: ER 12:14 → EDBD 15:51 → TELE 15:51 → TELE-EAST 17:27 → TELE-E-ADS 10-04 12:34
PROVIDERS: ADMIT Hospitalist; ATTEND Internal Medicine
PROC: XW033E5 Introduction of Remdesivir Anti-infective into Peripheral Vein, Percutaneous Approach, New Technology Group 5 (ICD-10-PCS; 2021-09-27)
PROC: 5A0935A Assistance with Respiratory Ventilation, Less than 24 Consecutive Hours, High Flow/Velocity Cannula (ICD-10-PCS; 2021-10-04)
PROC: 5A0935A Assistance with Respiratory Ventilation, Less than 24 Consecutive Hours, High Flow/Velocity Cannula (ICD-10-PCS; 2021-10-05)
PROC: 5A0935A Assistance with Respiratory Ventilation, Less than 24 Consecutive Hours, High Flow/Velocity Cannula (ICD-10-PCS; 2021-10-06)
PROC: 5A0945A Assistance with Respiratory Ventilation, 24-96 Consecutive Hours, High Flow/Velocity Cannula (ICD-10-PCS; 2021-10-07)
PROC: 5A0945A Assistance with Respiratory Ventilation, 24-96 Consecutive Hours, High Flow/Velocity Cannula (ICD-10-PCS; 2021-10-10)
PROC: 5A09357 Assistance with Respiratory Ventilation, Less than 24 Consecutive Hours, Continuous Positive Airway Pressure (ICD-10-PCS; principal; 2021-10-12)
PROC: 5A09557 Assistance with Respiratory Ventilation, Greater than 96 Consecutive Hours, Continuous Positive Airway Pressure (ICD-10-PCS; 2021-10-19)
PROC: 3E0336Z Introduction of Nutritional Substance into Peripheral Vein, Percutaneous Approach (ICD-10-PCS; 2021-10-24)
DX: A41.89 Other specified sepsis (principal); J96.01 Acute respiratory failure with hypoxia; J12.82 Pneumonia due to coronavirus disease 2019; N17.0 Acute kidney failure with tubular necrosis; U07.1 COVID-19; D89.839 Cytokine release syndrome, grade unspecified; A41.01 Sepsis due to Methicillin susceptible Staphylococcus aureus; E88.09 Other disorders of plasma-protein metabolism, not elsewhere classified; E66.01 Morbid (severe) obesity due to excess calories; E78.5 Hyperlipidemia, unspecified; Z66 Do not resuscitate; F17.210 Nicotine dependence, cigarettes, uncomplicated; Z79.82 Long term (current) use of aspirin; Z68.21 Body mass index [BMI] 21.0-21.9, adult; Z86.73 Personal history of transient ischemic attack (TIA), and cerebral infarction without residual deficits; Z90.49 Acquired absence of other specified parts of digestive tract
CPT/HCPCS: 36415; 36600; 71045; 71275; 80048; 80053; 80061; 80307; 81001; 82040; 82306; 82728; 82805; 82962; 83036; 83605; 83615; 83735; 83880; 84100; 84443; 84478; 84484; 84550; 85007; 85025; 85027; 85379; 85610; 85730; 86141; 87040; 87077; 87086; 87147; 87186; 87426; 93005; 93970; 94640; 94660; 96361; 96365; 96375; 99291; G0378; J0696; J1100; J1815; J1956; J2543; J3480; J3490; J7131